=== PATIENT | male | born 1945 | race Caucasian/White ===

== ENCOUNTER 2017-09-17 18:46 | Emergency (ER) | payer MEDICARE, OTHER ==
[2017-09-17 19:55] LABS: #Eosinphils 0.1 thou/uL (0.0-0.7); #Lymphocytes 0.8 thou/uL (1.20-3.40); #Monocytes 0.5 thou/uL (0.11-0.59); #Neutrophils 3.5 thou/uL (1.40-6.50); %Basophils 0.3 % (0.0-1.0); %Lymphocytes 15.9 % (21.0-51.0); %Monocytes 9.3 % (0.0-10.0); %Neutrophils 71.5 % (42.0-75.0); Hemoglobin 13.6 g/dL (14.0-18.0); Mean Corpuscular HGB CONC 32.7 g/dL (32.0-36.0); Mean Corpuscular Hemoglobin 33.5 pg (27.0-31.0); Mean Platelet Volume 9.1 fL (7.4-10.4); Platelet Count 152 thou/uL (130-400); RBC Distribution Width 14.4 % (11.5-14.5); Red Blood Cell (RBC) Count 4.05 mill/uL (4.70-6.10); White Blood Cell (WBC) Count 4.9 thou/uL (4.8-10.8)
[2017-09-17] MEDS ORDERED: HYDROcodone/Acetaminophen 10/325 mg Tablet ONE (20:00)
[2017-09-17] MEDS ORDERED: Ondansetron ODT 8 MG TAB ONE (20:00)
[2017-09-17 20:17] LABS: PTT 34.4 SEC (22.9-36.1); Prothrombin Time 23.5 SEC (12.0-14.7)
[2017-09-17 20:20] LABS: ALT (SGPT) 39 U/L (8-55); AST (SGOT) 33 U/L (5-34); Albumin 4.3 g/dL (3.4-4.8); Alkaline Phosphatase 72 U/L (40-150); Anion Gap 12 mmol/L (10-20); BUN (Urea Nitrogen) 12 mg/dL (8.4-25.7); Bilirubin, Total 1.7 mg/dL (0.2-1.2); CRP (Inflammatory) Less than 0.50 mg/dL (= or < 0.5); Calc. Creatinine Clearance 0 mL/min (70-130); Calcium 9.2 mg/dL (7.8-10.44); Carbon Dioxide 25 mmol/L (23-31); Chloride 103 mmol/L (98-107); Estimated GFR-MDRD 72; Glucose 100 mg/dL (83-110); Lipase 14 U/L (8-78); Potassium 3.5 mmol/L (3.5-5.1); Protein, Total 7.3 g/dL (5.8-8.1); Sodium 136 mmol/L (136-145)
[2017-09-17 20:23] LABS: CKMB 1.5 ng/mL (0-6.6); Troponin I Less than 0.010 ng/mL (< 0.028)
== END 2017-09-17 20:38 | disposition home or self-care (01) ==
LOC: ERS 18:46
DX: K42.0 Umbilical hernia with obstruction, without gangrene (principal); I10 Essential (primary) hypertension; F17.290 Nicotine dependence, other tobacco product, uncomplicated; Z71.6 Tobacco abuse counseling
CPT/HCPCS: 80053; 82550; 82553; 83605; 83690; 84484; 85025; 85610; 85730; 86140; 93005; 99406

== ENCOUNTER 2017-09-19 10:13 | Inpatient (IN) | payer MEDICARE, OTHER ==
[2017-09-19 11:13] LABS: #Lymphocytes 0.9 thou/uL (1.20-3.40); #Monocytes 0.6 thou/uL (0.11-0.59); #Neutrophils 4.4 thou/uL (1.40-6.50); %Basophils 0.1 % (0.0-1.0); %Eosinophils 0.8 % (0.0-10.0); %Lymphocytes 15.3 % (21.0-51.0); %Monocytes 10.1 % (0.0-10.0); %Neutrophils 73.7 % (42.0-75.0); Mean Corpuscular Hemoglobin 32.7 pg (27.0-31.0); Mean Platelet Volume 9.6 fL (7.4-10.4); Platelet Count 162 thou/uL (130-400); RBC Distribution Width 14.5 % (11.5-14.5)
[2017-09-19] MEDS ORDERED: Morphine 4 MG/ML VIAL ONE (11:25)
[2017-09-19 11:28] LABS: ALT (SGPT) 31 U/L (8-55); AST (SGOT) 24 U/L (5-34); Albumin 4.5 g/dL (3.4-4.8); Alkaline Phosphatase 81 U/L (40-150); Anion Gap 21 mmol/L (10-20); BUN (Urea Nitrogen) 16 mg/dL (8.4-25.7); Bilirubin, Total 2.3 mg/dL (0.2-1.2); Calc. Creatinine Clearance 0 mL/min (70-130); Calcium 9.6 mg/dL (7.8-10.44); Carbon Dioxide 21 mmol/L (23-31); Chloride 97 mmol/L (98-107); Estimated GFR-MDRD 48; Globulin 3.5 g/dL (2.4-3.5); Glucose 147 mg/dL (83-110); Lipase 6 U/L (8-78); Potassium 4.5 mmol/L (3.5-5.1); Sodium 134 mmol/L (136-145)
[2017-09-19] MEDS ORDERED: Ondansetron HCl/PF 4 MG/2 ML Vial ONE (11:44)
[2017-09-19 12:54] LABS: INR-International Normal Ratio 2.3; PTT 37.2 SEC (22.9-36.1)
[2017-09-19] MEDS ORDERED: Phytonadione 10 MG/ML AMP PO SCH (14:00)
[2017-09-19] MEDS ORDERED: Ondansetron HCl/PF 4 MG/2 ML Vial IVP PRN (14:02)
[2017-09-19] MEDS ORDERED: Ondansetron ODT 4 MG TAB PO PRN (14:02)
[2017-09-19] MEDS ORDERED: Dextrose 5% in Water 1,000 ML IV PRN (14:02)
[2017-09-19] MEDS ORDERED: Dextrose 50% Abboject 50 ML SYRINGE SLOW IVP PRN (14:02)
[2017-09-19] MEDS ORDERED: traMADol HCl 50 MG TAB PO PRN ×2 (14:04)
[2017-09-19] MEDS ORDERED: Acetaminophen 500 MG TAB PO PRN (14:05)
[2017-09-19] MEDS ORDERED: Phytonadione 10 MG/ML AMP ONE (14:10)
--- NOTE | 2017-09-19 15:04 | HP ---
DATE OF ADMISSION: 09/19/2017 ADMITTING PHYSICIAN: Dr. Bob Bear. CHIEF COMPLAINT: Nausea, vomiting, and abdominal pain status post umbilical hernia reduction. HISTORY OF PRESENT ILLNESS: Mr. Stewart is a 72-year-old male who reports a 3-4 year history of an umbilical hernia which he says has never given him any problems. Over the weekend, he was at work wi th a camper in [place] when he says he may have strained himself, pulling himself up into the camper. Shortly thereafter, he developed severe abdominal pain. He called his PCP who advised him to come t o the [facility] ED for evaluation. The patient was seen in the ED where he had his hernia reduced. He then went home and reports that approximately an hour and half later, he says his hernia came out . He began experiencing abdominal pain and vomiting. He has been vomiting frequently since that . Patient brought himself to the [facility] today. He was given some morphine and the hernia was a gain reduced in the ER. On exam, he reports that his pain has resolved. He is no longer nauseous or vomiting. The patient reports that he takes warfarin for a prosthetic heart valve. His INR measure d in the ED was 2.3. 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 The patient also reports coronary artery disease status post CABG x1. The patient also reports some sort of heart valve replacement. He is unsure what valve he had replaced. MEDICATIONS: Home medications include Revlimid daily. The patient says he also takes a bone builder for cancer treatment one time a month. He does not know the name of this drug. The patient takes w arfarin 2.5 mg 5 days a week and 5 mg on Mondays and . The patient also takes levothyroxine 88 mcg daily. The patient takes Crestor 5 mg daily. Patient takes aspirin 81 mg daily. ALLERGIES: The patient reports a severe allergy to IODINE. PAST SURGICAL HISTORY: Patient reports a history of CABG x1 with Dr. Shabazz. Reports history of hea rt valve replacement with Dr. Saez. The patient reports having aortic stents placed with Dr. Shabazz . He also reports back surgery with Dr. Sarabia. FAMILY HISTORY: Significant for mother and father both from stroke. SOCIAL HISTORY: The patient denies alcohol use. The patient says he chews cigars but does not smoke . He does not use any other drugs. The patient lives alone in [place]. He is . His live s in [place]. REVIEW OF SYSTEMS: A 10 point review of systems is negative except as mentioned in the HPI. PHYSICAL EXAMINATION: VITAL SIGNS: BP 136/77, heart rate 77, respirations 16, O2 sat 93% on room air, temperature 97.5. GENERAL APPEARANCE: An elderly adult male lying comfortably in bed. He is in no acute distress. HEENT: Normocephalic and atraumatic. EYES: PERRLA, EOMI. EARS: Atraumatic. NOSE: Nares patent without blood or discharge. MOUTH: Oropharynx is pink and moist and atraumatic. NECK: Trachea is midline. He has no cervical spine tenderness. RESPIRATORY: His breath sounds are clear to auscultation bilaterally with normal effort. CARDIOVASCULAR: He has a regular rate and rhythm. No murmurs, gallops or rubs. Synthetic heart kelin ve sounds heard best on the left sternal border, fourth intercostal and fifth intercostal midclavicul ar. ABDOMEN: Soft, nontender and nondistended. He has positive bowel sounds. His umbilicus is mildly p rotruding and erythematous. EXTREMITIES: Patient has left lower leg edema. His right lower leg is without edema. He has a well healed surgical scar medially on his left calf. He has another well healed surgical scar along his sternum. NEUROLOGIC: Patient is alert and oriented x3. He has no focal deficits. His GCS is 15. LABORATORY DATA: Hematology: WBC 6.0, hemoglobin 16.0, hematocrit 50.2, platelets 162. Chemistry: Sodium 134, potassium 4.5, chloride 97, bicarbonate 21, BUN 16, creatinine 1.45, glucose 147, and ca lcium 9.6. Liver function test: Total bilirubin 2.3, total protein 8.0, albumin 4.5, globulin 3.5, albumin globulin ratio 1.3, alkaline phosphatase 81, AST 24, ALT 31, lipase 6, lactate 2.5. [place]; his PT is 26, INR 2.3, PTT 37.2. IMAGING DATA: There are no images to review. ASSESSMENT AND PLAN: 1. Abdominal pain status post reduction of incarcerated umbilical hernia. 2. Nausea and vomiting. 3. Elevated lactate. 4. Warfarin induced coagulopathy. 5. Elevated creatinine, unclear baseline. 6. Plasmacytoma present on admission. 7. History of prosthetic heart valve, present on admission. 8. Hypothyroidism, present on admission. PLAN: 1. Admit the patient to the surgical floor. He will need surgery to repair his umbilical hernia. G iven the patient's current INR, we will administer vitamin K and reverse his coagulopathy before take n to the OR. Plan is to take him to the OR tomorrow. 2. Optimize patient's pain control. Other supportive care measures as needed. 3. The patient's home medications restarted with exception of warfarin and aspirin. These will be h eld until he is postoperative. 4. Clear liquid diet. The patient will be n.p.o. after midnight. This patient was seen and examined along with Dr. Bob Bear who agrees with the assessment and pl an.
[2017-09-19 16:40] LABS: Lactic Acid 2.4 mmol/L (0.5-2.2)
[2017-09-19 16:55] VITALS: BMI 31.5
[2017-09-19] MEDS: Sodium Chloride 0.9% 1,000 ML IV SCH (17:04)
[2017-09-19] MEDS ORDERED: hydrALAZINE 20 MG/ML VIAL SLOW IVP PRN (17:20)
[2017-09-19] MEDS ORDERED: Morphine 4 MG/ML VIAL SLOW IVP PRN (21:07)
[2017-09-20 05:36] LABS: INR-International Normal Ratio 1.4; PTT 30.4 SEC (22.9-36.1); Prothrombin Time 17.2 SEC (12.0-14.7)
[2017-09-20 05:45] LABS: #Eosinphils 0.1 thou/uL (0.0-0.7); #Lymphocytes 0.6 thou/uL (1.20-3.40); #Monocytes 0.5 thou/uL (0.11-0.59); #Neutrophils 2.8 thou/uL (1.40-6.50); %Basophils 0.1 % (0.0-1.0); %Eosinophils 3.4 % (0.0-10.0); %Lymphocytes 14.4 % (21.0-51.0); %Monocytes 13.4 % (0.0-10.0); %Neutrophils 68.8 % (42.0-75.0); Hemoglobin 12.7 g/dL (14.0-18.0); Mean Corpuscular HGB CONC 32.7 g/dL (32.0-36.0); Mean Corpuscular Hemoglobin 32.7 pg (27.0-31.0); Mean Platelet Volume 8.6 fL (7.4-10.4); Platelet Count 128 thou/uL (130-400); RBC Distribution Width 14.5 % (11.5-14.5); Red Blood Cell (RBC) Count 3.87 mill/uL (4.70-6.10); White Blood Cell (WBC) Count 4.1 thou/uL (4.8-10.8)
[2017-09-20 06:17] LABS: Anion Gap 11 mmol/L (10-20); BUN (Urea Nitrogen) 17 mg/dL (8.4-25.7); Calc. Creatinine Clearance 106 mL/min (70-130); Calcium 8.1 mg/dL (7.8-10.44); Carbon Dioxide 25 mmol/L (23-31); Chloride 104 mmol/L (98-107); Estimated GFR-MDRD 78; Glucose 98 mg/dL (83-110); Potassium 3.5 mmol/L (3.5-5.1); Sodium 136 mmol/L (136-145)
[2017-09-20] MEDS: Sodium Chloride 0.9% 1,000 ML IV SCH (07:12)
[2017-09-20] MEDS ORDERED: Bupivacaine/Epinephrine 0.25% 30 ML VIAL ONE (10:20)
[2017-09-20] MEDS ORDERED: Fentanyl 250 MCG/5 ML VIAL ONE (10:21)
[2017-09-20] MEDS ORDERED: CEFAZOLIN/Water 2 GM/20 ML SYRINGE ONE (10:57)
[2017-09-20] MEDS ORDERED: Glycopyrrolate 0.2 MG/ML 5 ML SYRINGE ONE (11:58)
[2017-09-20] MEDS ORDERED: Ondansetron HCl/PF 4 MG/2 ML Vial ONE (11:58)
[2017-09-20] MEDS ORDERED: PROPOFOL 200 MG/20 ML VIAL ONE (11:58)
[2017-09-20] MEDS ORDERED: Lidocaine 1% PF 5 ML VIAL ONE (11:58)
[2017-09-20] MEDS ORDERED: PHENYLEPHRINE-NS 100 MCG/ML 10 ML SYRINGE ONE (11:58)
[2017-09-20] MEDS ORDERED: Succinylcholine Chloride 20 MG/ML 10 ml SYRINGE FS ONE (11:58)
[2017-09-20] MEDS ORDERED: Promethazine HCl 25 MG/ML VIAL SLOW IVP PRN (12:58)
[2017-09-20] MEDS ORDERED: Promethazine HCl 25 MG/ML VIAL IM PRN (12:58)
[2017-09-20] MEDS ORDERED: Morphine Sulfate 2 MG/ML SYRINGE SLOW IVP PRN (12:58)
[2017-09-20] MEDS ORDERED: Ondansetron HCl/PF 4 MG/2 ML Vial IVP PRN (12:58)
--- NOTE | 2017-09-20 14:19 | OP ---
DATE OF OPERATION: 09/20/2017 PREOPERATIVE DIAGNOSIS: Acute incarcerated umbilical hernia. POSTOPERATIVE DIAGNOSIS: Acute incarcerated umbilical hernia. PROCEDURES PERFORMED: Repair of incarcerated umbilical hernia with mesh. SURGEON: Bob Bear D.O. ANESTHESIA: General endotracheal. ESTIMATED BLOOD LOSS: Less than 5 mL. COUNTS: Sponge and instrument count certified as correct x2. COMPLICATIONS: None apparent at the time of operation. INDICATIONS FOR OPERATION: A 72-year-old man presented with recurrent umbilical bulging ma ss which failed to reduce. Clinical radiographic examination was consistent with acute incarcerated umbilical hernia. This was complicated by lactic acidosis and warfarin induced coagulopathy. The pa tient was given 2 mg of vitamin K yesterday. Repeat INR today reveals INR which is less than 2. Lac tic acidosis is now resolved. TECHNIQUE: The patient was brought to the operating room for repair of umbilical hernia. Findings a re consistent with incarcerated umbilical hernia, but no evidence of peritonitis. There was a large umbilical hernia sac encountered. Informed consent obtained from the patient who was brought to the operating room and placed in supine position. Following general anesthesia, the abdomen is sterilely prepped and draped in usual fashion. Infraumbilical curvilinear incision is made using 15 scalpel a fter the skin and subcutaneous tissues were infiltrated with 0.25% Marcaine with epinephrine. An inc ision was carried down through subcutaneous tissues maintaining hemostasis using thermocautery. Umbi lical stalk was elevated. The hernia sac is dissected free from surrounding fascia. The hernia sac was then taken off the umbilical stalk with cautery taking care to avoid injury to the umbilicus itse lf. Once hernia sac was freed up, it was opened and inspected. There was no bowel incarceration. T he hernia sac was then excised and passed off the operative field for transmission to pathology. Jorge A tralex patch was introduced into the peritoneal cavity and sutured circumferentially to the knik fa scia using interrupted sutures of 3-0 Prolene. The fascia was then approximated using interrupted sheppard tures of 0 Vicryl. Umbilical stalk was reattached to knik fascia using interrupted sutures of 3-0 Vicryl. Subcutaneous tissues were approximated using interrupted sutures of 2-0 Vicryl. Skin incisi on was closed using a running stitch of 4-0 Monocryl suture in subcuticular fashion. Sterile dressin gs were applied. The patient tolerated this operation without any apparent complication and was retu rned to recovery room in satisfactory condition.
[2017-09-20] MEDS: Acetaminophen/Codeine 30-300mg Tablet PO SCH (16:55)
[2017-09-20] MEDS ORDERED: Acetaminophen 500 MG TAB PO SCH (18:00)
[2017-09-20] MEDS ORDERED: Warfarin Sodium 5 MG TAB PO SCH (18:30)
[2017-09-20] MEDS ORDERED: Rosuvastatin 5 MG TAB PO SCH (19:00)
[2017-09-20] MEDS ORDERED: Warfarin Sodium 2.5 MG TAB PO SCH (19:15)
[2017-09-20] MEDS ORDERED: LENALIDOMIDE 10 MG PO SCH (21:00)
[2017-09-21] MEDS: Acetaminophen/Codeine 30-300mg Tablet PO SCH ×3 (00:02→12:10)
--- NOTE | 2017-09-21 01:11 | PRG ---
DATE OF SERVICE: 09/20/2017 SUBJECTIVE: The patient is currently on the surgical floor. He is postoperative from an acute incar cerated umbilical hernia, which he underwent repair of that hernia with mesh. The patient reportedly tolerated this procedure well. At my time of examination, the patient was sleeping and appeared to be resting comfortably in bed. The nurses report no issues or complaints from the patient postoperat ively. PHYSICAL EXAMINATION: VITAL SIGNS: Temperature is 98.3, heart rate 78, blood pressure 124/72, respirations 16, oxygen satu ration is 96% on room air. ASSESSMENT AND PLAN: Status post incarcerated umbilical hernia repair with mesh. Plan will be to re evaluate the patient for discharge in the morning. From my understanding the original plan was for h im to be discharged this evening, but the patient requested since he lives alone. He will be dischar ged in the morning, which we will do.
[2017-09-21] MEDS ORDERED: Levothyroxine Sodium 88 MCG TAB PO SCH (06:00)
[2017-09-21] MEDS ORDERED: Rosuvastatin 5 MG TAB PO SCH (09:00)
[2017-09-21] MEDS ORDERED: LENALIDOMIDE 10 MG PO SCH (09:00)
[2017-09-21 12:05] VITALS: BP 126/79; TEMP 98.2
--- NOTE | 2017-09-21 13:45 | DIS ---
DATE OF ADMISSION: 09/19/2017 DATE OF DISCHARGE: 09/21/2017 ADMITTING PHYSICIAN: Dr. Bob Bear. ADMITTING DIAGNOSES: 1. Acute incarcerated umbilical hernia. 2. Warfarin-induced coagulopathy. POSTOPERATIVE DIAGNOSES: 1. Acute incarcerated umbilical hernia. 2. Warfarin-induced coagulopathy. 3. Acute incarcerated umbilical hernia. OPERATIONS PERFORMED: Repair of umbilical hernia with mesh yesterday, 09/20/2017. HISTORY AND HOSPITAL COURSE: A 72-year-old man admitted with incarcerated umbilical hernia. Postoperatively, he had abdominal pain and was placed on observation. Today, he is ambulating with m inimal difficulty. Pain is adequately controlled on oral analgesics. Incisional wound remains intac t, clean, and dry. The patient will be discharged today with the following instructions: He is to f ollow up with me in the Surgery [facility] in 2 weeks. He is given a prescription for Tylenol #3 to be t aken as needed for pain. He is to call me with any questions or problems in the interim. The mark t has expressed gratitude for the care rendered to him during this hospitalization.
[2017-09-21] MEDS ORDERED: Warfarin Sodium 2.5 MG TAB PO SCH (17:00)
[2017-09-22] MEDS ORDERED: Warfarin Sodium 5 MG TAB PO SCH (17:00)
--- NOTE | 2017-10-17 11:05 | EKG ---
Test Reason : PREOP Blood Pressure : / mmHG Vent. Rate : 070 BPM Atrial Rate : 070 BPM P-R Int : 172 ms QRS Dur : 134 ms QT Int : 498 ms P-R-T Axes : 046 -74 089 degrees QTc Int : 537 ms Sinus rhythm with Premature supraventricular complexes Right bundle branch block Left anterior fascicular block Bifascicular block Abnormal ECG When compared with ECG of 17-SEP-2017 18:57, (Unconfirmed) Nonspecific T wave abnormality now evident in Anterior leads Confirmed by COLBY VICK M.D. ([id number]) on 10/17/2017 11:05:19 AM Referred By: VERONICA Confirmed By:COLBY VICK M.D.
== END 2017-09-21 14:41 | disposition home or self-care (01) | DRG 354 ==
LOC: ERS 10:13 → SURG B 13:10
PROVIDERS: ADMIT Surgery; ATTEND Surgery
PROC: 0WUF0JZ Supplement Abdominal Wall with Synthetic Substitute, Open Approach (ICD-10-PCS; principal; 2017-09-20)
DX: K42.0 Umbilical hernia with obstruction, without gangrene; I25.10 Atherosclerotic heart disease of native coronary artery without angina pectoris; E87.2 Acidosis; Z95.1 Presence of aortocoronary bypass graft; E03.9 Hypothyroidism, unspecified; Z95.2 Presence of prosthetic heart valve; Z79.01 Long term (current) use of anticoagulants; F17.220 Nicotine dependence, chewing tobacco, uncomplicated; T45.515A Adverse effect of anticoagulants, initial encounter; F17.290 Nicotine dependence, other tobacco product, uncomplicated; C90.30 Solitary plasmacytoma not having achieved remission; T88.7XXA Unspecified adverse effect of drug or medicament, initial encounter
CPT/HCPCS: 36415; 80048; 80053; 82550; 82553; 83605; 83690; 84484; 85025; 85610; 85730; 86140; 87804; 93005; 93010; 94640; 96361; 96374; 96375; 99406; C1781; J0131; J0696; J2001; J2270; J2405; J2704; J3010; J3430; J7620

== ENCOUNTER 2020-04-23 15:32 | Inpatient (IN) | payer MEDICARE, OTHER ==
--- NOTE | 2020-04-23 16:16 | RAD ---
RADIOGRAPH CHEST 1 VIEW: DATE: 04/23/2020 HISTORY: 74-year-old male with dyspnea and hypotension. FINDINGS: The thoracic aorta is tortuous and ectatic. There is no evidence of air space density, pneumothorax, or pulmonary edema. The lateral costophrenic angles are sharp. There are sternotomy wires. Two surg ical clips overlying the right mediastinum. Widening of the right mediastinum. IMPRESSION: 1. No acute pulmonary findings. 2. Ectasia of thoracic aorta. 3. Signs of previous open heart surgery. una hudson POS: AMRIT
[2020-04-23] MEDS ORDERED: Ketorolac Tromethamine 30 MG/ML VIAL ONE (16:18)
[2020-04-23] MEDS ORDERED: Morphine 4 MG/ML VIAL ONE (16:18)
[2020-04-23 16:35] LABS: Hemoglobin 14.3 g/dL (14.0-18.0); Mean Corpuscular HGB CONC 32.1 g/dL (32.0-36.0); Mean Corpuscular Hemoglobin 33.7 pg (27.0-31.0); Mean Platelet Volume 11.7 fL (7.4-10.4); Platelet Count 54 thou/uL (130-400); RBC Distribution Width 13.4 % (11.5-14.5); Red Blood Cell (RBC) Count 4.24 mill/uL (4.70-6.10); White Blood Cell (WBC) Count 6.4 thou/uL (4.8-10.8)
[2020-04-23 16:50] LABS: Band 29 % (5-11); Dohle Bodies SLIGHT; Lymphocytes 3 % (21-51); MDiff Complete? YES; Macrocytosis SLIGHT = 6-15 cells (100X) (0-5/hpf); Metamyelocyte 2 % (0-0); Monocytes 6 % (0-10); Neutrophil 57 % (42-75); Ovalocytes SLIGHT = 2-5 cells (100X) (0-1/hpf); Platelet Morphology Comment Appears Decreased; Reactive Lymphocytes 3 % (0-10); Vacuoles SLIGHT
[2020-04-23 16:58] LABS: Chloride 94 mmol/L (98-107); Potassium 3.4 mmol/L (3.5-5.1); Sodium 131 mmol/L (136-145)
[2020-04-23 16:59] LABS: Calcium 6.8 mg/dL (7.8-10.44); Glucose 145 mg/dL (83-110)
[2020-04-23 17:00] LABS: Globulin 2.6 g/dL (2.4-3.5); Protein, Total 5.6 g/dL (5.8-8.1)
[2020-04-23 17:01] LABS: Anion Gap 20 mmol/L (10-20); Bilirubin, Total 4.7 mg/dL (0.2-1.2); Carbon Dioxide 20 mmol/L (23-31)
[2020-04-23 17:02] LABS: Alkaline Phosphatase 88 U/L (40-110)
[2020-04-23 17:03] LABS: BUN (Urea Nitrogen) 50 mg/dL (8.4-25.7); Calc. Creatinine Clearance 0 mL/min (70-130); Estimated GFR-MDRD 19
[2020-04-23 17:04] LABS: AST (SGOT) 60 U/L (5-34)
[2020-04-23 17:05] LABS: ALT (SGPT) 40 U/L (8-55)
[2020-04-23 17:06] LABS: Lipase 7 U/L (8-78)
[2020-04-23 17:11] LABS: CKMB 2.6 ng/mL (0-6.6)
[2020-04-23 19:05] LABS: PTT 61.4 sec (22.9-36.1); Prothrombin Time 44.9 sec (12.0-14.7)
[2020-04-23] MEDS ORDERED: EPINEPHrine 1 MG/ML AMP ONE (19:12)
[2020-04-23] MEDS ORDERED: EPINEPHrine 1 MG/10 ML Abboject SYRINGE ONE (19:13)
[2020-04-23 19:14] LABS: INR-International Normal Ratio 4.6
[2020-04-23] MEDS ORDERED: Norepinephrine 4 MG/4 ML VIAL ONE (19:20)
--- NOTE | 2020-04-23 19:36 | RAD ---
EXAM: CHEST ONE VIEW HISTORY: Severe left abdominal and back pain. Central line placement. COMPARISON: 04/23/2020 at 1605 hours. FINDINGS: There has been interval placement of a right internal jugular vein central venous catheter with tip o verlying the expected location of the cavoatrial junction. Postoperative changes related to median sternotomy and cardiac valve replacement are again seen. Cardiac silhouette is magnified by projectio n but does appear mildly enlarged. There are mild increased linear densities in the left perihilar location which are more prominent than on the prior exam. While findings could be related to atelecta sis, developing area of pneumonitis cannot be excluded. Short interval follow-up is recommended. Linear scar versus atelectasis is present the right lung base. No other interval change. IMPRESSION: 1. Increased linear and slight patchy densities left perihilar location. This was not seen on recent exam. Findings could be related to atelectasis, but follow-up examination is recommended to ensure that there is no developing area of pneumonitis. 2. Interval placement of right-sided vascular catheter without pneumothorax.
[2020-04-23] MEDS ORDERED: cefTRIAXone\\ROCEPHIN 2 GM VIAL ONE (19:38)
[2020-04-23] MEDS ORDERED: Vancomycin 1 GM/200 ML BAG ONE (19:38)
[2020-04-23 19:42] LABS: Lactic Acid 1.5 mmol/L (0.5-2.2)
[2020-04-23] MEDS ORDERED: Cefepime 2 GM VIAL ONE (19:42)
--- NOTE | 2020-04-23 20:08 | CT ---
CT ABDOMEN AND PELVIS WITHOUT IV CONTRAST: 04/23/20 HISTORY: Severe left sided abdominal pain and back pain. COMPARISON: CT lumbar spine on 11/10/16 as well as CTA abdomen on 03/04/16 and 09/17/15. FINDINGS: Lack of intravenous contrast limits sensitivity for evaluation of vascular structures and parenchymal organs. There are linear and patchy parenchymal densities at each lung base, probably related to bibasilar vo lume loss. Postoperative changes related to aortic valve replacement are noted. Calcifications seen in the michelle l valve annulus with prominent coronary artery calcifications visualized. Median sternotomy wires and findings related to CABG are partially imaged. Endovascular repair of an abdominal aortic aneurysm is noted with aortic stent graft in place. The an eurysm sac measures 6.8 cm transverse x 6.2 cm AP. The aneurysm sac measured6.2 cm transverse x 6.1 c m AP on study in [address] lumbar spine in 2017, the greatest transverse dimension was 6.5 cm. A neurysm sac is continuing to enlarge. There is heterogeneity seen within the aneurysm sac which was a lso seen on prior studies including slight halo of increased density adjacent to the iliac limbs of t he graft which were also present on prior exam. No periaortic fluid or inflammatory stranding is seen . The liver, spleen, pancreas, and bilateral adrenal glands demonstrate grossly normal nonenhanced CT a ppearance. No renal or ureteral calculi are seen bilaterally. There is mild nonspecific but symmetri c perinephric stranding present. The urinary bladder is decompressed and not well evaluated on this exam. Loops of small bowel are normal in caliber. The previously described lytic lesion in the posterior aspect of the L1 vertebral body is again seen with extension into the anterior epidural space. This is also seen on prior CT lumbar spine. There ar e metastatic lesions seen within the T8, T9, and probably within the T10 vertebral bodies. There is mild wedge shaped compression fracture of the T9 vertebral body likely related to pathological fract ure. There is greater increased sclerosis in this region compared to prior CT thoracic spine in 2017. There is a lytic lesion present in the right aspect of the L5 vertebral body with additional multifo manas scattered lucencies within vertebral bodies of the lumbar spine as well as throughout the sacrum with largest lytic metastatic lesion in the S2 vertebral body. There are several lytic lesions seen throughout each iliac bone and in the pelvis with several lytic lesions within each proximal femur. T hese lesions were not appreciated on the CT scan of 2016. IMPRESSION: 1. Evidence of endograft repair of an AAA with interval enlargement of the aneurysm sac diameter with largest measurement on today's exam of 6.8 cm. Largest measurement on study in 2017 was 6.5 cm. There is heterogeneity in the aneurysm sac. 2. Diffuse osseous metastatic disease which has progressed when compared to studies in 2016 as w ell as examinations in 2017. There are diffuse lytic lesions seen throughout the spine and throughout the pelvis and involving each proximal femur. Above findings discussed with Dr. Leal in the Emergency Department on 04/23/20 at 1814 hours. POS: JOBY
[2020-04-23] MEDS ORDERED: Acetaminophen 325 MG TAB PO PRN (23:18)
[2020-04-23] MEDS ORDERED: Norepinephrine 8 MG/0.9% NS 250 ML IVPB SCH (23:30)
[2020-04-23] MEDS: Sodium Chloride 0.9% 1,000 ML IV SCH (23:45)
[2020-04-23 23:50] LABS: Anion Gap 17 mmol/L (10-20); BUN (Urea Nitrogen) 57 mg/dL (8.4-25.7); Calc. Creatinine Clearance 0 mL/min (70-130); Calcium 6.9 mg/dL (7.8-10.44); Carbon Dioxide 21 mmol/L (23-31); Chloride 95 mmol/L (98-107); Estimated GFR-MDRD 16; Glucose 150 mg/dL (83-110); Potassium 3.3 mmol/L (3.5-5.1); Sodium 130 mmol/L (136-145)
[2020-04-23 23:55] LABS: Troponin I 0.216 ng/mL (< 0.028)
--- NOTE | 2020-04-24 02:22 | HP ---
REASON FOR ADMISSION: Weakness and diarrhea. HISTORY OF PRESENT ILLNESS: This is a male patient who is known to have multiple myeloma, undergoing chemotherapy and on Revlimid, presented today complaining of shortness of breath, found to be hypotensive. He also reported having diarrhea. Also, he was in rapid atrial fibrillation. He was given IV fluids but remained hypotensive and subsequently required to be on a Levophed drip, currently appears to be doing much better. He denies any abdominal pain. Denies any chest pain. No fevers, no chills, no cough. Reviewing his records, his last admission was in 2018 for acute incarcerated umbilical hernia. PAST MEDICAL HISTORY: 1. Multiple myeloma. 2. Just finished chemo and radiation therapy on Revlimid once a day. 3. High blood pressure. 4. Metallic heart valve. 5. Aortic aneurysm repair. 6. High cholesterol. 7. Status post open heart surgery. 8. Back surgery. 9. Umbilical hernia repair. 10. Hypothyroidism. SOCIAL HISTORY: Does not smoke. Does not drink alcohol. FAMILY HISTORY: Negative for premature coronary artery disease. ALLERGIES: IODINE. REVIEW OF SYSTEMS: All systems reviewed except the above-mentioned diarrhea found to be negative. PHYSICAL EXAMINATION: GENERAL: He is awake, alert, oriented, does not appear in distress. VITAL SIGNS: Blood pressure is 140/72, his heart rate is 122, saturating 100% on room air. HEENT: Head is nontraumatic, normocephalic. Pupils equal, reactive. Extraocular movements are intact. Nonicteric sclerae. Well injected conjunctivae. Oral mucosa normal. Nasal mucosa normal. NECK: Supple. No adenopathy. No murmur. Thyroid is not palpable. Trachea is midline. No supraclavicular adenopathy. HEART: S1, S2 irregular. No displacement of PMI. LUNGS: Poor inspiratory effort. He has patchy crackles in bilateral bases. Bowel sounds are positive. Nontender abdomen. No hepatosplenomegaly. EXTREMITIES: 1+ pitting edema in bilateral lower extremities. NEURO: Cranial nerves 2 through 12 within normal limits. Normal motor function. Normal sensory function. Normal reflexes. LABORATORY DATA: Blood work shows WBC of 6.4, hemoglobin 14.3, platelets of 54, bands of 29%. INR 4.6, sodium of 131, potassium 3.4, bicarb 20, creatinine 3.19, baseline is around 1.27, glucose 145, calcium 6.8, albumin of 3. Troponin 0.196. CT of the abdomen and pelvis shows evidence of endograft repair of an AAA with interval enlargement of the aneurysm sac diameter with largest measurement on today's exam of 6.8 cm. Largest measurement on study in 2017 was 6.5. There is heterogeneity in the aneurysm sac. Diffuse osseous metastatic disease which has progressed when compared to studies in 2016, as well as examination in 2017. There are diffuse lytic lesions seen throughout the spine and throughout the pelvis and involving each proximal femur. Chest x-ray shows increased linear and slight patchy densities in left perihilar location. This was not seen on recent exam. Finding could be related to atelectasis but followup examination is recommended to ensure that there is no developing area of pneumonitis. Interval placement of right-sided vascular catheter without pneumothorax. EKG shows rapid atrial fibrillation per my read. ASSESSMENT AND PLAN: This is a 74-year-old male patient, who presented complaining of back pain. He is known to have multiple myeloma on chemotherapy and Revlimid. Also reported having diarrhea. He was found to be hypotensive, also in rapid atrial fibrillation. He was given IV fluids and started on Levophed. Currently doing much better, but continued to be in rapid atrial fibrillation. His blood work does reflect acute kidney injury and possibly sepsis. Source is not clear. Cardiac: The patient is in rapid atrial fibrillation. He continues to require Levophed, although we are titrating it down. He is tolerating his rapid ventricular rate. We will not be able to slow him down since he is on pressors. We will continue to monitor him. We will titrate down his Levophed and reassess. We will ask Cardiology to see him in the morning. His troponin is elevated, most likely due to demand ischemia. We will continue trending his troponins. He will be admitted to the intensive care unit. Pulmonary: The patient might have a developing pneumonia that can explain his increased bands and possibly, he is septic. We will have him covered with cefepime and vancomycin. He did receive initial dose in the ER. ID: The patient is most likely septic. We will check urinalysis and culture since the source remains not very clear. Hematology: The patient has elevated INR. He is on Coumadin. His INR is supratherapeutic. We will hold off on Coumadin for now. Recheck his INR in the morning. Renal system, electrolytes: The patient has hyponatremia, hypokalemia, and acute kidney injury. He did receive fluids. We will recheck his BMP and adjust his fluids accordingly until then. He will be on IV fluid hydration. I did discuss the code status with him. He wishes to be full code. One hour of critical care time was spent to manage this patient. Job ID: [id number]
[2020-04-24 02:41] VITALS: BMI 33.0
[2020-04-24] MEDS ORDERED: Ondansetron PF 4 MG/2 ML Vial IVP PRN (03:16)
[2020-04-24] MEDS ORDERED: Ondansetron PF 4 MG/2 ML Vial ONE (03:16)
[2020-04-24 04:10] LABS: Prothrombin Time 57.1 sec (12.0-14.7)
[2020-04-24 04:11] LABS: INR-International Normal Ratio 6.3
[2020-04-24 04:26] LABS: Anion Gap 15 mmol/L (10-20); BUN (Urea Nitrogen) 60 mg/dL (8.4-25.7); Calc. Creatinine Clearance 24 mL/min (70-130); Calcium 6.9 mg/dL (7.8-10.44); Carbon Dioxide 21 mmol/L (23-31); Chloride 96 mmol/L (98-107); Estimated GFR-MDRD 15; Glucose 112 mg/dL (83-110); Potassium 3.2 mmol/L (3.5-5.1); Sodium 129 mmol/L (136-145)
[2020-04-24 04:35] LABS: Band 15 % (5-11); Eosinophils 2 % (0-10); Hypochromia SLIGHT = 6-15 cells (100X) (0-5/hpf); Lymphocytes 4 % (21-51); MDiff Complete? YES; Macrocytosis SLIGHT = 6-15 cells (100X) (0-5/hpf); Mean Corpuscular HGB CONC 33.1 g/dL (32.0-36.0); Mean Corpuscular Hemoglobin 34.7 pg (27.0-31.0); Mean Platelet Volume 12.5 fL (7.4-10.4); Monocytes 15 % (0-10); Neutrophil 64 % (42-75); Platelet Count 47 thou/uL (130-400); Platelet Morphology Comment Appears Adequate; RBC Distribution Width 13.6 % (11.5-14.5); Red Blood Cell (RBC) Count 3.75 mill/uL (4.70-6.10); White Blood Cell (WBC) Count 3.9 thou/uL (4.8-10.8)
[2020-04-24] MEDS ORDERED: Phytonadione 10 MG/ML AMP PO SCH (05:00)
[2020-04-24] MEDS ORDERED: CEFAZOLIN 1 GM in Sodium Chloride 0.9% 100 ML IVPB SCH (08:00)
[2020-04-24] MEDS ORDERED: Vancomycin 1 GM in Premix Bag 1 BAG IVPB SCH (08:00)
[2020-04-24] MEDS ORDERED: CEFAZOLIN 1 GM VIAL ONE (08:30)
[2020-04-24] MEDS: Sodium Chloride 0.9% 1,000 ML IV SCH (08:30)
[2020-04-24] MEDS ORDERED: Norepinephrine 8 MG/0.9% NS 250 ML ONE (09:00)
--- NOTE | 2020-04-24 09:09 | PDOC.HOSPP ---
- Subjective Encounter Date: 04/24/20 Encounter Time: 09:00 Subjective: Patient feels "hot" and has since he came to the hospital. No other complaints besides back pain from his cancer. Noted to be a bit flushed, especially left cheek but unchanged from last night per nursing. BP stable on Levophed 6. No CCU beds here so trying to arrange transfer to [facility]. - Objective Vital Signs & Weight: Weight Weight 230 lb Result Diagrams: 04/24/20 03:53 04/24/20 03:53 Hospitalist ROS - Review of Systems Constitutional: denies: fever, chills Respiratory: denies: cough, shortness of breath Cardiovascular: denies: chest pain, palpitations Gastrointestinal: reports: diarrhea. denies: nausea, vomiting, abdominal pain Genitourinary: denies: dysuria, hematuria Musculoskeletal: reports: back pain - Medication Medications: Active Medications Generic Name Dose Route Start Last Admin Trade Name Freq PRN Reason Stop Dose Admin Cefazolin Sodium 1 gm/ Sodium 100 mls @ 200 mls/hr 04/24/20 08:00 04/24/20 09:03 Chloride IVPB 100 mls 0800,2000 KEHINDE Administration Sodium Chloride 1,000 mls @ 125 mls/hr 04/23/20 23:30 04/24/20 08:30 Normal Saline 0.9% IV 1,000 mls .Q8H KEHINDE Administration Ondansetron HCl 4 mg 04/24/20 03:16 04/24/20 03:41 Ondansetron Pf 4 Mg/2 Ml Vial IVP 4 mg Q6H PRN Administration Nausea/Vomiting - Exam General Appearance: NAD, awake alert ENT: moist mucosa ENT - other findings: cheeks flushed, especialy left Heart: no murmur, no gallops, no rubs, irregular Heart - other findings: mildly tachycardic Respiratory: CTAB, no wheezes, no rales, no ronchi Gastrointestinal: soft, non-tender, non-distended, normal bowel sounds Psychiatric: normal affect, normal behavior, A&O x 3 Hosp A/P (1) Septic shock Code(s): A41.9 - SEPSIS, UNSPECIFIED ORGANISM; R65.21 - SEVERE SEPSIS WITH SEPTIC SHOCK Status: Acute (2) Diarrhea Code(s): R19.7 - DIARRHEA, UNSPECIFIED Status: Acute (3) Multiple myeloma Code(s): C90.00 - MULTIPLE MYELOMA NOT HAVING ACHIEVED REMISSION Status: Chronic Qualifiers: Multiple myeloma remission status: not in remission Qualified Code(s): C90.00 - Multiple myeloma not having achieved remission (4) Acute renal failure Status: Acute (5) Atrial fibrillation with RVR Code(s): I48.91 - UNSPECIFIED ATRIAL FIBRILLATION Status: Acute (6) HTN (hypertension) Code(s): I10 - ESSENTIAL (PRIMARY) HYPERTENSION Status: Chronic Qualifiers: Hypertension type: essential hypertension Qualified Code(s): I10 - Essential (primary) hypertension (7) HLD (hyperlipidemia) Code(s): E78.5 - HYPERLIPIDEMIA, UNSPECIFIED Status: Chronic (8) Hypothyroidism Code(s): E03.9 - HYPOTHYROIDISM, UNSPECIFIED Status: Chronic (9) Bacteremia Code(s): R78.81 - BACTEREMIA Status: Acute (10) History of artificial heart valve Status: Chronic (11) 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 Still in afib with RVR. Cardiology consulted. Looking to transfer to [facility] due to lack of CCU beds. Growing MRSA in both blood cultures. Suspicious for infected heart valve or AAA endovascular graft/stent. Given patient's metastatic melanoma and renal failure I don't think he would be a candidate for any sort of surgical intervention, but will curbside Dr. Saez when he gets out of surgery to run the case by him. I did talk to Dr. Byers at [facility] and he accepted transfer to their ICU. Patient with poor prognosis.
[2020-04-24 14:53] LABS: SARS-CoV-2 MS2 Positive; SARS-CoV-2 N Gene Negative; SARS-CoV-2 S Gene Negative; SARS-CoV-2 by NAA Not Detected (NotDetected); SARS-CoV-2 orf1ab Negative
[2020-04-24] MEDS ORDERED: Vancomycin HCl 750 MG in Sodium Chloride 0.9% 250 ML 250 ML IVPB SCH (18:00)
--- NOTE | 2020-04-26 15:32 | EKG ---
Test Reason : Blood Pressure : / mmHG Vent. Rate : 129 BPM Atrial Rate : 129 BPM P-R Int : 000 ms QRS Dur : 146 ms QT Int : 334 ms P-R-T Axes : 000 -64 093 degrees QTc Int : 489 ms Atrial fibrillation with rapid ventricular response Right bundle branch block Left anterior fascicular block Bifascicular block Voltage criteria for left ventricular hypertrophy Cannot rule out Septal infarct , age undetermined T wave abnormality, consider lateral ischemia Abnormal ECG Confirmed by CHELSEA BRADEN ([id number]), commissioning editor MIGUEL SULLIVAN ([id number]) on 04/26/2020 3:32:39 PM Referred By: Confirmed By:CHELSEA Lujan
--- NOTE | 2020-04-28 06:52 | DIS ---
DATE OF ADMISSION: 04/23/2020 DATE OF DISCHARGE: 04/23/2020 REASON FOR ADMISSION: Septic shock. DISCHARGE DIAGNOSES: 1. Septic shock. 2. Methicillin-resistant Staphylococcus aureus bacteremia. 3. Multiple myeloma, on chemotherapy. 4. Acute renal failure. 5. History of aortic aneurysm repair with endovascular graft. 6. Artificial heart valve. 7. Supratherapeutic INR. 8. Atrial fibrillation with rapid ventricular rate. SUMMARY OF HOSPITAL COURSE: The patient was admitted from the emergency room for septic shock. He was found to have MRSA bacteremia. He had to be given fluids and then Levophed. The patient was also noted to be in atrial fibrillation. He was placed for admission to an ICU bed. However, we did not have any ICU beds and so he remained down in the emergency room. Eventually, an ICU bed opened up at [facility]. I did curbside Dr. Saez of Vascular Surgery. He stated that the patient was not stable enough or near ever being able to have any sort of surgical repair done if he did have an infected valve or graft and so transferring him there where they do not have vascular surgery capabilities would not be a problem at this time. I did speak with Dr. Byers at [facility] in [place]. He did accept to transfer to their ICU. Job ID: [id number]
--- NOTE | 2020-04-29 04:06 | PQF ---
CLINICAL DOCUMENTATION CLARIFICATION FORM: Dear : Chris Mccormick Date / Time: 04/29/2020 7210 Please exercise your independent, professional judgment in responding to the clarification form. Clinical indicators are provided on the bottom of this form for your review In your clinical opinion based on clinical findings below, can you please identify the etiology of Sepsis if due to: Please check appropriate box(es): [ X ] Infected Valve prosthesis and graft [ ] Pneumonia [ ] Other diagnosis [ ] Unable to determine Physician Signature: Date/Time: For continuity of documentation, please document condition throughout progress notes and discharge summary. Thank You. To be completed by CDI/Coding staff for physician review: Present Clinical Indicators - Signs / Symptoms / Labs Results and Location in Medical Record [X] WBC 6.4, Plt count 54, Neutrophils 57, Band 29, Lactic acid 3.8 Laboratory 04/23 [X] Blood culture : MRSA Microbiology 04/23 [X] BP 95/56, Pulse 123, Resp 23, Temp 98.3 Vital signs 04/23 [X] SIRS Scoring: Pt did meet criteria ED notes p11 04/23 [X] Developing Pneumonia H&P p3 04/23 Dr Hernández [X] Septic Shock HPN p3 04/24 Dr Mccormick [X] Acute renal failure HPN p3 04/24 Dr Mccormick [X] Bacteremia HPN p3 04/24 Dr Mccormick [X] Suspicions for infected hear valve or AAA endovascular graft HPN p3 04/24 Dr Mccromick [X] Chest Xray: increased linear and slight patchy densities Chest Xray 04/23 Present Risk Factors Results and Location in Medical Record [X] 74 year-old Male H&P p1 04/23 Dr Hernández [X] MM H&P p1 04/23 Dr Hernández [X] HTN H&P p1 04/23 Dr Hernández [X] s/p metallic valve H&P p1 04/23 Dr Hernández [X] Pneumonia H&P p3 04/23 Dr Hernández [X] infected hear valve or AAA endovascular graft HPN p3 04/24 Dr Mccormick Present Treatments Results and Location in Medical Record [X] Blood culture Microbiology 04/23 [X] IV Ancef1 gm MRA 04/24 [X] IV Cefepime 2 gm MAR 04/23 [X] IV Rocephin 2 gm MAR 04/23 [X] IV Levophed 4 mg AUG 28 [X] IVF NS 1L AUG 28 [X] IV Vancomycin 1 gm AUG 28 [X] Sepsis Protocol ED notes p104/23 [X] Chest X-ray Imgaing Dr Maria 04/23 CDS/Bat Boy/Girl Signature: Casie Virgen Phone #: ext [phone] Date/Time: 04/29/2020 0406 This is a permanent part of the Medical Record [facility]
== END 2020-04-23 21:30 | disposition short-term general hospital (02) | DRG 314 ==
LOC: ERS 15:32 → ERHOLD 20:15
PROVIDERS: ADMIT Internal Medicine; ATTEND Emergency Medicine
PROC: 3E043XZ Introduction of Vasopressor into Central Vein, Percutaneous Approach (ICD-10-PCS; principal; 2020-04-23)
PROC: 02HV33Z Insertion of Infusion Device into Superior Vena Cava, Percutaneous Approach (ICD-10-PCS; 2020-04-23)
DX: T82.6XXA Infection and inflammatory reaction due to cardiac valve prosthesis, initial encounter (principal); A41.02 Sepsis due to Methicillin resistant Staphylococcus aureus; R65.21 Severe sepsis with septic shock; J18.9 Pneumonia, unspecified organism; C90.00 Multiple myeloma not having achieved remission; N17.9 Acute kidney failure, unspecified; I24.8 Other forms of acute ischemic heart disease; E87.1 Hypo-osmolality and hyponatremia; C79.9 Secondary malignant neoplasm of unspecified site; Y83.1 Surgical operation with implant of artificial internal device as the cause of abnormal reaction of the patient, or of later complication, without mention of misadventure at the time of the procedure; T82.7XXA Infection and inflammatory reaction due to other cardiac and vascular devices, implants and grafts, initial encounter; R79.1 Abnormal coagulation profile; I48.91 Unspecified atrial fibrillation; Z20.828 Contact with and (suspected) exposure to other viral communicable diseases; I10 Essential (primary) hypertension; F17.290 Nicotine dependence, other tobacco product, uncomplicated; E86.0 Dehydration; E78.00 Pure hypercholesterolemia, unspecified; E03.9 Hypothyroidism, unspecified; E87.6 Hypokalemia; R19.7 Diarrhea, unspecified; E78.5 Hyperlipidemia, unspecified; Z95.828 Presence of other vascular implants and grafts; Z92.21 Personal history of antineoplastic chemotherapy; Z92.3 Personal history of irradiation; Z79.899 Other long term (current) drug therapy; Z79.01 Long term (current) use of anticoagulants; Z79.890 Hormone replacement therapy; Z79.82 Long term (current) use of aspirin
CPT/HCPCS: 36415; 36556; 71045; 74176; 80048; 82553; 83605; 83690; 84484; 85025; 85610; 85730; 87040; 87077; 87149; 87186; 87635; 93005; 96361; 96365; 96366; 96368; 96374; 96375; J0171; J0690; J0692; J0696; J1885; J2270; J2405; J3370; J3430; J3490; U0003